=== PATIENT | male | born 1935 | race Caucasian/White ===

== ENCOUNTER 2017-02-08 06:56 | Emergency (ER) | payer MEDICARE ==
[2017-02-08 07:23] LABS: BASOPHILS 0.4 % (0-2); EOSINOPHILS 2.5 % (0-7); HEMATOCRIT 49.3 % (42.0-54.0); HEMOGLOBIN 16.8 g/dL (13.5-17.5); IMMATURE GRANULOCYTES 0.3 % (0-5); LYMPHOCYTES 24.3 % (15-50); MCH 27.8 pg (26.0-34.0); MCHC 34.1 g/dL (31.0-37.0); MCV 81.5 fL (80.0-100.0); MEAN PLATELET VOLUME 9.2 fL (7.4-10.4); MONOCYTES 10.1 % (2-11); NEUTROPHILS 62.4 % (40-80); PLATELET COUNT 191 10x3/uL (130-400); RBC 6.05 10x6/uL (4.20-6.10); RDW 12.6 % (11.5-14.5); WBC 7.6 10x3/uL (4.8-10.8)
[2017-02-08 07:42] LABS: ALBUMIN 3.4 g/dL (3.4-5.0); ALKALINE PHOSPHATASE 76 U/L (46-116); ALT (SGPT) 21 U/L (10-68); CALC OSMOLALITY 279 mosm/kg (275-300); CALCIUM 9.3 mg/dL (8.5-10.1); CARBON DIOXIDE 34.2 mmol/L (21.0-32.0); CHLORIDE - SERUM 100 mmol/L (98-107); CREATININE - SERUM 1.2 mg/dL (0.6-1.3); GLUCOSE 85 mg/dL (74-106); POTASSIUM - SERUM 3.1 mmol/L (3.5-5.1); PROTEIN - SERUM 7.4 g/dL (6.4-8.2); SODIUM 139 mmol/L (136-145); UREA NITROGEN 22 mg/dL (7-18); eGFR NON AFRICAN AMERICAN 62 mL/min (90-120)
[2017-02-08 07:46] LABS: CREATINE KINASE 56 UL (21-232)
[2017-02-08 07:49] LABS: TROPONIN-I < 0.017 ng/mL (0.000-0.060)
[2017-05-17] MEDS ORDERED: BAYER CHEWABLE81 MG PO (09:31)
[2017-05-21 09:46] VITALS: BMI 27.4
== END 2017-02-08 16:25 | disposition home or self-care (01) ==
LOC: D.ER 06:56
PROVIDERS: Emergency Medicine
DX: R42 Dizziness and giddiness (principal); I10 Essential (primary) hypertension

== ENCOUNTER 2017-02-13 06:33 | Outpatient (CLI) | payer MEDICARE ==
[2017-02-13 07:57] LABS: BASOPHILS 0.5 % (0-2); EOSINOPHILS 4.2 % (0-7); HEMATOCRIT 48.4 % (42.0-54.0); HEMOGLOBIN 16.2 g/dL (13.5-17.5); IMMATURE GRANULOCYTES 0.1 % (0-5); LYMPHOCYTES 22.1 % (15-50); MCH 27.6 pg (26.0-34.0); MCHC 33.5 g/dL (31.0-37.0); MCV 82.3 fL (80.0-100.0); MEAN PLATELET VOLUME 9.4 fL (7.4-10.4); MONOCYTES 8.5 % (2-11); NEUTROPHILS 64.6 % (40-80); PLATELET COUNT 203 10x3/uL (130-400); RBC 5.88 10x6/uL (4.20-6.10); RDW 12.7 % (11.5-14.5); WBC 7.7 10x3/uL (4.8-10.8)
[2017-02-13 08:19] LABS: APTT 35.4 SECONDS (22.8-39.4)
[2017-02-13 08:20] LABS: CALCIUM 9.6 mg/dL (8.5-10.1); CARBON DIOXIDE 31.4 mmol/L (21.0-32.0); CREATININE - SERUM 1.6 mg/dL (0.6-1.3); POTASSIUM - SERUM 3.4 mmol/L (3.5-5.1)
[2017-02-13] MEDS ORDERED: COZAAR100 MG PO (08:32)
[2017-02-13] MEDS ORDERED: KLOR-CON M2020 MEQ PO (08:32)
[2017-02-13] MEDS ORDERED: CHLORTHALIDONE50 MG PO (08:32)
[2017-02-13] MEDS ORDERED: PRILOSEC10 M1 PO (08:33)
[2017-02-13] MEDS ORDERED: PRAVACHOL80 MG PO (08:33)
[2017-02-13] MEDS ORDERED: ASPIRIN325 MG PO (08:41)
[2017-02-13 08:43] VITALS: BP 159/74; BMI 26.5
[2017-05-17] MEDS ORDERED: BAYER CHEWABLE81 MG PO (09:31)
== END 2017-02-13 09:00 | disposition home or self-care (01) ==
LOC: D.OPS 06:33 → D.RAD 09:00 → D.OPS 09:00
PROVIDERS: General Practice
DX: D15.0 Benign neoplasm of thymus (principal); Z01.810 Encounter for preprocedural cardiovascular examination; Z01.811 Encounter for preprocedural respiratory examination; Z01.812 Encounter for preprocedural laboratory examination; Z53.9 Procedure and treatment not carried out, unspecified reason

== ENCOUNTER 2017-02-18 09:51 | Outpatient (CLI) | payer MEDICARE ==
[~2017-02-18 09:51] MED LIST: ASPIRIN325 MG PO; CHLORTHALIDONE50 MG PO; COZAAR100 MG PO; KLOR-CON M2020 MEQ PO; PRAVACHOL80 MG PO; PRILOSEC10 M1 PO
[2017-02-18 11:38] LABS: BASOPHILS 0.4 % (0-2); EOSINOPHILS 2.7 % (0-7); HEMATOCRIT 48.6 % (42.0-54.0); HEMOGLOBIN 16.5 g/dL (13.5-17.5); IMMATURE GRANULOCYTES 0.4 % (0-5); LYMPHOCYTES 25.5 % (15-50); MCH 27.9 pg (26.0-34.0); MCV 82.1 fL (80.0-100.0); MEAN PLATELET VOLUME 8.9 fL (7.4-10.4); MONOCYTES 6.7 % (2-11); NEUTROPHILS 64.3 % (40-80); PLATELET COUNT 233 10x3/uL (130-400); RBC 5.92 10x6/uL (4.20-6.10); RDW 12.3 % (11.5-14.5); WBC 9.9 10x3/uL (4.8-10.8)
[2017-02-18 11:49] LABS: CALC OSMOLALITY 282 mosm/kg (275-300); CALCIUM 9.6 mg/dL (8.5-10.1); CARBON DIOXIDE 29.7 mmol/L (21.0-32.0); CHLORIDE - SERUM 100 mmol/L (98-107); GLUCOSE 90 mg/dL (74-106); POTASSIUM - SERUM 3.1 mmol/L (3.5-5.1); SODIUM 141 mmol/L (136-145); UREA NITROGEN 19 mg/dL (7-18); eGFR NON AFRICAN AMERICAN 76 mL/min (90-120)
[2017-02-18 11:50] VITALS: BP 187/81; BMI 26.5
[2017-02-18 11:53] LABS: APTT 38.1 SECONDS (22.8-39.4)
--- NOTE | 2017-02-18 14:54 | NUR ---
1425- PT BACK TO ROOM WITH HOB ELEVATED. PT TO BE ON BEDREST FOR THE NEXT 4 HOURS PER REPORT. REGULAR FOOD TRAY OFFERED. VSS. WILL MONITOR. 1455- PT CONTINUES TO SIT UP IN BED WITH HOB ELEVATED. FOOD TOLERATED. VSS. SEE VS SHEET. DRESSING C/D/I.
--- NOTE | 2017-02-18 16:08 | NUR ---
1530- PT RESTING COMFORTABLY. VSS. DRESSING REMAINS C/D/I. 1600- CHEST XRAY COMPLETED. CONTINUE WITH BEDREST. VSS.
--- NOTE | 2017-02-18 16:20 | NUR ---
REPORT GIVEN TO SALLY RICHTER RN. PT CONTINUES TO SIT UP IN BED WITH HOB ELEVATED. VSS. DRESSING REMAINS C/D/I.
--- NOTE | 2017-02-18 17:03 | NUR ---
PT RESTING EASILY. DRESSING TO CHEST REMAINS C/D/I. WATER REQUESTED AND PROVIDED.
--- NOTE | 2017-02-18 17:58 | NUR ---
IV D/C'D CATH INTACT FROM R A/C.
--- NOTE | 2017-02-18 18:09 | NUR ---
D/C INSTRUCTIONS EXPLAINED TO PT. VOICED UNDERSTANDING. COPIES OF ALL GIVEN TO PT.
--- NOTE | 2017-02-18 18:17 | NUR ---
D/C'D HOME VIA W/C TO PRIVATE CAR.
[2017-05-17] MEDS ORDERED: BAYER CHEWABLE81 MG PO (09:31)
== END 2017-02-18 18:20 | disposition home or self-care (01) ==
LOC: D.RAD 09:51 → D.SDCHOLD 11:33 → D.RAD 13:00
PROVIDERS: Radiology Diagnostic Radiology
DX: D15.0 Benign neoplasm of thymus (principal); R42 Dizziness and giddiness; E78.5 Hyperlipidemia, unspecified; Z01.812 Encounter for preprocedural laboratory examination

== ENCOUNTER 2017-03-09 03:37 | Emergency (ER) | payer MEDICARE ==
[2017-05-17] MEDS ORDERED: BAYER CHEWABLE81 MG PO (09:31)
== END 2017-03-09 07:26 | disposition home or self-care (01) ==
LOC: D.ER 03:37
DX: S43.402A Unspecified sprain of left shoulder joint, initial encounter (principal); W01.0XXA Fall on same level from slipping, tripping and stumbling without subsequent striking against object, initial encounter; Y93.89 Activity, other specified; Y92.029 Unspecified place in mobile home as the place of occurrence of the external cause; I10 Essential (primary) hypertension

== ENCOUNTER → 2017-03-22 13:01 | Outpatient (CLI) | payer MEDICARE ==
[~2017-03-22 13:01] MED LIST changes: +BAYER CHEWABLE81 MG PO; +HYDROCODONE-APA1 TAB PO; +PLAVIX75 MG PO
== END | disposition home or self-care (01) ==
LOC: D.US 13:01 → D.RT 14:45
DX: I65.23 Occlusion and stenosis of bilateral carotid arteries (principal); R91.8 Other nonspecific abnormal finding of lung field

== ENCOUNTER → 2017-04-02 10:27 | Outpatient (CLI) | payer MEDICARE | END | disposition home or self-care (01) | LOC: D.CT 10:27 | DX: I65.23 Occlusion and stenosis of bilateral carotid arteries (principal) ==

== ENCOUNTER 2017-04-09 06:38 | Inpatient (IN) | payer MEDICARE ==
[2017-04-09] VITALS (11 sets, daily range): BP systolic 94–192; BP diastolic 45–93; Ht 182.9 cm; Wt 93.2 kg
[~2017-04-09] VITALS: Ht 182.9 cm; Wt 93.2 kg
[~2017-04-09 06:38] MED LIST changes: -BAYER CHEWABLE81 MG PO; -HYDROCODONE-APA1 TAB PO; -PLAVIX75 MG PO
[2017-04-09] MEDS ORDERED: PLAVIX75 MG PO (08:20)
[2017-04-09 08:24] LABS: HEMOGLOBIN 16.4 g/dL (13.5-17.5); MCH 28.2 pg (26.0-34.0); MCHC 34.9 g/dL (31.0-37.0); MCV 80.9 fL (80.0-100.0); MEAN PLATELET VOLUME 9.1 fL (7.4-10.4); RBC 5.81 10x6/uL (4.20-6.10); RDW 12.8 % (11.5-14.5); WBC 7.8 10x3/uL (4.8-10.8)
[2017-04-09 08:40] LABS: APTT 34.4 SECONDS (22.8-39.4); INR 1.04 (0.85-1.17); PROTIME 13.2 SECONDS (11.6-15.0)
[2017-04-09 08:57] LABS: ALBUMIN 3.9 g/dL (3.4-5.0); ALKALINE PHOSPHATASE 79 U/L (46-116); ALT (SGPT) 32 U/L (10-68); CALC OSMOLALITY 277 mosm/kg (275-300); CALCIUM 9.9 mg/dL (8.5-10.1); CARBON DIOXIDE 31.9 mmol/L (21.0-32.0); CHLORIDE - SERUM 98 mmol/L (98-107); CREATININE - SERUM 0.9 mg/dL (0.6-1.3); GLUCOSE 102 mg/dL (74-106); PROTEIN - SERUM 7.8 g/dL (6.4-8.2); SODIUM 138 mmol/L (136-145); UREA NITROGEN 17 mg/dL (7-18); eGFR NON AFRICAN AMERICAN 86 mL/min (90-120)
[2017-04-09 09:08] LABS: APPEARANCE CLEAR (CLEAR); BACTERIA FEW /hpf (NONE SEEN); BILIRUBIN NEGATIVE (NEGATIVE); COLOR YELLOW (YELLOW); EPITHELIAL CELLS OCC /hpf (0-5); GLUCOSE NEGATIVE (NEGATIVE); KETONE NEGATIVE (NEGATIVE); NITRITE NEGATIVE (NEGATIVE); PROTEIN NEGATIVE (NEGATIVE); RED CELLS - URINE 0-5 /hpf (0-5); UROBILINOGEN NORMAL (NORMAL); WHITE CELLS - URINE RARE /hpf (0-5)
--- NOTE | 2017-04-09 15:00 | NUR ---
RECIEVED PT TO CVICU BED 05. SLEEPY DOES FOLLOWS COMMANDS. ON 7 CC OF NITRO BUT WEANED OFF. BP 110/50. PLASMALYTE AT 30CC/HR ZINACEF AT 11.4. NO CO AT TIME.
--- NOTE | 2017-04-09 16:00 | NUR ---
FAMILY AT THE BEDSIDE. NO CO AT TIME.
--- NOTE | 2017-04-09 18:30 | NUR ---
DR KING CALLED OK TO GIVE COZAAR 100MG NOW. AND GIVEN.
--- NOTE | 2017-04-09 19:20 | NUR ---
REPORT REC'D AND CARE ASSUMED, REC'D PT SITTING UP IN BED, AWAKE, ALERT, ORIENTED X 3, O2 @ 4LITERS VIA NC, RIGHT RADIAL SREE WITH FLEXION BOARD IN USE, LEFT NECK DRSG CDI, MINIMAL EDEMA, ICE PACK TO SITE, LEFT UPPER CHEST JACKLYN DRAIN COMPRESSED WITH SANGUINOUS DRAINAGE PRESENT, PT MAEE, TONGUE MIDLINE AND SMILE SYMMETRICAL, RIGHT IJ DL WITH PLASMALYTE @ 30CC/HR AND ZINACEF @ 11.4CC/HR, CRITICORE ORTEGA PREVIOUSLY REMOVED, URINAL PROVIDED FOR PT BUT PT HAS NOT HAD TO VOID OF YET, TEDS/SCDS, PPP, PT DENIES NEEDS, SR UP X 2, CALL LIGHT IN REACH, BED IN LOW POSITION.
--- NOTE | 2017-04-09 20:15 | NUR ---
FAMILY AT BS AND UPDATE PROVIDED, LIST OF TV CHANNELS PROVIDED ON REQUEST.
--- NOTE | 2017-04-09 21:00 | NUR ---
PT WANTING TO GO TO SLEEP, DENTURES REMOVED CLEANED FOR PT AND PLACED IN DENTURE CUP TO SOAK, PLACED ON BEDSIDE TABLE, PT ATE 1/2 OF SANDWICH, DENIES NAUSEA OR OTHER NEEDS
--- NOTE | 2017-04-09 22:00 | NUR ---
PT EXPRESSES CONCERN ABOUT "NOT GOING TO THE BATHROOM YET", ASKED PT IF HE FELT THE URGE TO VOID, STATES " NO I DON'T FEEL LIKE I HAVE TO GO", URINAL IN REACH.
[2017-04-10] VITALS (32 sets, daily range): BP systolic 91–135; BP diastolic 36–71
--- NOTE | 2017-04-10 | NUR ---
PT REPOSITIONED UP IN BED, NEURO CHECKS REMAIN UNCHANGED, PT SAT UP IN BED WITH URINAL FAUCET TURNED PER REQUEST.
--- NOTE | 2017-04-10 00:30 | NUR ---
PT VOIDED A FEW BLOOD TINGED DROPS OF URINE, STATES "IT PLATA WHEN I TRY TO VOID", PT DENIES BLADDER DISCOMFORT, REQUESTING ICE WATER, ICE WATER PROVIDED, PT STATES " I WILL TRY AGAIN LATER", VSS.
--- NOTE | 2017-04-10 02:00 | NUR ---
ROUTINE MEDS GIVEN, PT REPOSITIONED UP IN BED FOR COMFORT, BP DROPS INTO THE 80'S AT TIMES WHEN SLEEPING, PT DENIES PAIN OR OTHER NEEDS, VSS.
--- NOTE | 2017-04-10 02:51 | NUR ---
PT AWAKE REQUESTING SOMETHING FOR NECK PAIN, ULTRAM GIVEN, PT SITTING UP IN BED, STATES " I FEEL THE URGE TO GO" PT ABLE TO VOID 25CC BLOOD TINGED URINE, WILL MONITOR FOR CHANGES.
--- NOTE | 2017-04-10 03:30 | NUR ---
REASSESSMENT COMPLETED WITH NO CHANGE FROM PREVIOUS ASSESSMENT
--- NOTE | 2017-04-10 04:30 | NUR ---
PT ASKING ABOUT BREAKFAST, INFORMED PT THE TRAYS ARRIVED AT 0730, SNACK PROVIDED AT THIS TIME.
--- NOTE | 2017-04-10 05:45 | NUR ---
Andres DANIEL AT BS, LEFT UPPER CHEST JACKLYN DRAIN DC'D, PRESSURE HELD, 2X2'S AND TEGADERM APPLIED, PT TOLERATED WELL, REPOSITIONED IN BED FOR COMFORT.
--- NOTE | 2017-04-10 06:30 | NUR ---
PT VOIDED 50CC CONCENTRATED URINE, HAND HELPER/DRIVER PROVIDED ON REQUEST.
--- NOTE | 2017-04-10 10:50 | NUR ---
* Is the patient Alert and Oriented? Yes 0 * How many steps to enter\exit or inside your home? 0 0 * PCP Dr. Sanders 0 * Pharmacy [facility] 0 * Preadmission Environment Home with Family 0 * ADLs Independent 0 * List name and contact numbers for known caregivers / representatives who currently or will assist patient after discharge: Spouse - Alethea [phone] 0 * Additional services required to return to the preadmission environment? No 0 * Can the patient safely return to the preadmission environment? Yes 0 * Has this patient been hospitalized within the prior 30 days at any hospital? No 0 Patient Name: BRENDAN FORD Admission Status: Elective Accout number: [id number] Admission Date: 04-09-2017 : 1935 Admission Diagnosis: Attending: MARCY KING Current LOS: 1 Anticipated DC Date: 04-11-2017 Planned Disposition: Home Primary Insurance: [employer] MEDICARE ADV Discharge Planning Comments: CM met with patient to assess dc plans/needs. Patient states he lives at home with his , Alethea. He reports he is fully independent with all ADL's & IADL's. He has not had home health services in the past or required any DME. At dc, he will return home with his . No needs identified or verbalized at this time. CM will follow & assist as needed. Materials Coordinator: Cara Feliciano
--- NOTE | 2017-04-10 12:00 | NUR ---
PT DENIES PAIN, UP IN CHAIR ABLE TO REPOSITION SELF, WILL CONTINUE TO MONITOR
--- NOTE | 2017-04-10 13:00 | NUR ---
PT WALKED 250FT WITH PT, VSS, DENIES PAIN, FAMILY AT BEDSIDE FOR VISITATION, WILL CONTINUE TO MONITOR
--- NOTE | 2017-04-10 14:00 | NUR ---
PT DENIES PAIN, UP IN CHAIR, VSS
--- NOTE | 2017-04-10 15:00 | NUR ---
VSS, DENIES ALL NEEDS, CALL LIGHT WITHIN REACH
--- NOTE | 2017-04-10 17:00 | NUR ---
PT UP IN CHAIR, DENIES PAIN AND ALL NEEDS, CVL DRESSING CHANGED, DRESSING TO L NECK PEELING OFF, REAPPLIED A NEW DRESSING, WILL CONTINUE TO MONITOR
--- NOTE | 2017-04-10 19:33 | NUR ---
PT AOX4, VSS. UP IN CHAIR, NO S/S OF DISTRESS, RESPIRATIONS UNLABORED. LT NECK WITH DRSG CDI, NO SWELLING OR OOZING PRESENT. EQUAL STRENGTH AND PRODUCER ASSISTANT. URINAL WITHIN PT REACH. FRESH WATER TO BEDSIDE. REPOSITIONS SELF INDEPENDENTLY. DENIES FURTHER NEEDS AT THIS TIME. CPOC.
--- NOTE | 2017-04-10 20:30 | NUR ---
FAMILY AT BEDSIDE, ALL QUESTIONS ANSWERED AT THIS TIME. DENIES NEEDS.
--- NOTE | 2017-04-10 23:30 | NUR ---
REASSESSMENT COMPLETE, NO CHANGES FROM PREVIOUS ASSESSMENT NOTED. PT RESTING QUIETLY WITH NO C/O AT THIS TIME. VSS. CPOC.
[2017-04-11] VITALS (8 sets, daily range): BP systolic 111–126; BP diastolic 51–63
--- NOTE | 2017-04-11 01:30 | NUR ---
PT SLEEPING QUIETLY WITH NO S/S OF DISTRESS AT THIS TIME. VSS. CALL LIGHT WITHIN PT REACH, ROOM VISIBLE FROM NURSES STATION. CPOC.
--- NOTE | 2017-04-11 03:43 | NUR ---
PT TO BATHROOM WITH MINIMAL ASSISTANCE, DENIES DIZZINESS. VSS, NO S/S OF DISTRESS. DENIES PAIN AT THIS TIME. LT NECK WITH NO SWELLING OR OOZING PRESENT.
--- NOTE | 2017-04-11 07:15 | NUR ---
PT ALERT AND OREINTED, ASSISTED TO CHAIR, VSS, DENIES PAIN, DRESSING TO L NECK CEA CDI, R SUBCLAVIAN CVL DRESSING CDI, SALINE LOCKED, ABLE TO VOICE ALL NEEDS, CALL LIGHT WITHIN REACH
--- NOTE | 2017-04-11 08:43 | NUR ---
CVL REMOVED, PRESSURE DRESSING APPLIED, DENIES ALL PAIN
--- NOTE | 2017-04-14 13:23 | OP ---
PATIENT NAME: BRENDAN FORD MEDICAL RECORD: [id number] :36 [facility] ADMISSION DATE:04/09/17 SURGEON: SENG KING MD DATE OF OPERATION: 04/09/2017 SURGEON: Seng King MD ANESTHESIA: General endotracheal. ANESTHESIOLOGIST: Chuck Diaz MD OPERATION PERFORMED: Left carotid endarterectomy with patch angioplasty. PREOPERATIVE DIAGNOSIS: Severe left internal carotid artery stenosis. POSTOPERATIVE DIAGNOSIS: Critical left internal carotid artery stenosis with an area of stenosis greater than 90%. INDICATION FOR OPERATION: Severe left internal carotid artery stenosis. FINDINGS OF THE OPERATION: Severe left internal carotid artery stenosis. The area of stenosis is greater than 90%. The bulb was almost totally occluded with blood having to enter the orifice of the external carotid artery to be able to traverse into the internal carotid artery. There were no EEG changes with clamping or unclamping of the carotid artery. ESTIMATED BLOOD LOSS: Less than 100 cc. DESCRIPTION OF PROCEDURE: After informed consent, adequate preoperative medication evaluation, the patient was brought to the operating room, placed on table in supine position. After induction of general endotracheal anesthesia and application of appropriate monitoring devices, the left neck was prepped and draped in a sterile field, utilizing Betadine scrub, alcohol, and Betadine solution. A Betadine-impregnated drape was also used. An oblique incision was made in the skin crease. Dissection carried down the fascia. Hemostasis maintained with electrocautery. Facial vein was identified and divided. Utilizing sharp dissection, the common carotid, internal and external carotid arteries were dissected free from surrounding structures, protecting the neurological structures. The patient was given a calculated dose of heparin, after 3 minutes, clamps were applied. After 2 minutes, no EEG changes. The arteriotomy was made and extended with Mac scissors. The bulb was almost totally occluded requiring a distal incision and bringing the 2 incisions together with a 15 blade. The artery then underwent endarterectomy sharply. Artery underwent extensive debridement and irrigation. Utilizing a CorMatrix vascular patch utilizing a running 7-0 Prolene suture, the arteriotomy was closed with patch angioplasty technique. All maneuvers to remove trapped air were performed. The clamps were removed sequentially. There were no EEG changes. The patient was given a calculated dose of protamine to reverse the heparin. Hemostasis was achieved, a #7 [place] drain was left in the depth of wound, and brought through the base of the neck, neck was again irrigated. Instrument count and sponge count were correct times 2. Neck was closed in layers utilizing 3-0 Vicryl on the platysma, 5-0 subcuticular Monocryl on the skin. Sterile dressings were applied. The patient tolerated the procedure well and was transferred to cardiovascular ICU in satisfactory condition. OPERATIVE REPORT [id number] BRENDAN FORD TRANSINT:[id number] Voice Confirmation ID: [id number] DOCUMENT ID: [id number] SENG KING MD at 1323 CC: [id number] DICTATION DATE: 04/09/17 1453 FAN BLADE TRUER: 04/09/17 1540 DIS IN 04/11/17 [facility] [address] [place] [address]
--- NOTE | 2017-04-14 13:23 | HP ---
PATIENT: BRENDAN FORD MEDICAL RECORD: [id number] ACCOUNT: [id number] LOCATION:[facility] : 36 ADMISSION DATE: 04/09/17 HISTORY AND PHYSICAL EXAMINATION NameBRENDAN FORD (81yo, M) ID# [id number]. Date/Time04/04/2017 09:69VQBHC40/23/1937Service Dept.NPP_[facility] ClinicProviderEDTHAIS KING MDInsuranceMed Primary: [employer] (MEDICARE REPLACEMENT/ADVANTAGE - HMO) Insurance # : [id number] Policy/Group # : [id number] Employer Name : RETIRED Prescription: CMX - Member is eligible. Chief Complaint Carotid stenosis Followup: Thymoma CTA carotids clinical f/u Patient's Care Team Primary Care Provider: ARIAN KRISHNA: [address] [facility], [place] [address], , Referring Provider: MAGDALENA HENRIQUEZ MD: [address] [facility] [place] [address], , Vitals BP:152/82 sitting R arm 04/04/2017 09:29 amBP Cuff Size:adult 04/04/2017 09:29 amHR:76,reg 04/04/2017 09:29 amHt:5 ft 11 in 04/04/2017 09:26 amWt:195 lbs 04/04/2017 09:29 amNotes:here for ttest results 04/04/2017 09:30 amBMI:27.2 04/04/2017 09:29 amAllergies Reviewed Allergies NKDAMedications Reviewed Medications aspirin 325 mg tablet Take 1 tablet(s) every day by oral route.03/01/17 enteredKathy Wilsonchlorthalidone 50 mg tablet Take 1 tablet(s) every day by oral route.03/29/17 filledCaremarkcyclobenzaprine 10 mg tablet TK ONE T PO TID PRF MUSCULAR PAIN OR PZFBID77/18/17 filledsurescriptslosartan 100 mg tablet Take 1 tablet(s) every day by oral route for 30 days.03/29/17 filledCaremarkomeprazole 10 mg capsule,delayed release Take 1 capsule(s) every day by oral route.03/01/17 [facility] Wilsonpotassium chloride ER 20 mEq tablet,extended release Take 1 tablet(s) every day by oral route.03/01/17 [facility] Wilsonpravastatin 80 mg dedvqw82/24/17 filledCaremark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 Family History Discussed Family History Father- Cerebrovascular accidentUnspecified Relation- Malignant neoplastic diseaseSocial History Discussed Social History Cardiology Family history of heart disease?: N HISTORY AND PHYSICAL [id number] BRENDAN FORD Smoking Status: Former smoker (Notes: quit x 30 yrs) High Cholesterol: Y High blood pressure: Y Exercise level: None Overweight: Y Obese: N Diabetes: N Alcohol intake: Occasional Occupation: retired Surgical History Reviewed Surgical History Past Medical History Discussed Past Medical History Carotid Stenosis: Y - bruit appreciated by PCP per h and p Dizzy Spells: Y Hyperlipidemia: Y Hypertension: Y Documents for Discussion N/A Screening None recorded. HPI Cerebral Vascular Disease Reported by patient. Associated Symptoms: no headache; no nausea; no vomiting; no tinnitus; no difficulty speaking; no lethargy; no fever; no chills; no palpitations; no syncope; no loss of consciousness severe left internal carotid artery stenosis Thymoma ROS Patient reports no fever, no night sweats, no significant weight gain, no significant weight loss, and no exercise intolerance. He reports no dry eyes, no irritation, and no vision change. He reports no difficulty hearing and no ear pain. He reports no frequent nosebleeds and no nose/sinus problems. He reports no sore throat, no bleeding gums, no snoring, no dry mouth, no mouth ulcers, no oral abnormalities, and no teeth p r oblems. He reports no jugular vein distension and no swollen glands. He reports no chest pain, no arm pain on exertion, no shortness of breath when walking, no shortness of breath when lying down, no palpitations, and no known heart murmur. He reports no c ough, no wheezing, no shortness of breath, and no coughing up blood. He reports no abdominal pain, no vomiting, normal appetite, no diarrhea, not vomiting blood, no nausea, and no constipation. He reports no incontinence, no difficulty urinating, no hemat u bk, and no increased frequency. He reports no muscle aches, no muscle weakness, no arthralgias/joint pain, no back pain, and no swelling in the extremities. He reports no abnormal mole, no jaundice, and no rashes. He reports no loss of consciousness, no w eakness, no numbness, no seizures, no dizziness, and no headaches. He reports no depression, no sleep disturbances, feeling safe in relationship, and no alcohol abuse. He reports no fatigue. He reports no swollen glands and no bruising. He reports no runn y nose, no sinus pressure, no itching, no hives, and no frequent sneezing. ROS as noted in the HPI Physical Exam Patient is an 81-year-old male. Constitutional: General Appearance well nourished and developed and HISTORY AND PHYSICAL [id number] BRENDAN FORD R healthy-appearing. Level of Distress NAD. Ambulation ambulating normally. Cardiovascular: Apical Impulse not displaced or no thrill. Heart Auscultation normal s1 and s2; no murmurs, rubs, or gallops; and RRR. Arterial Pulses no abdominal aorta bruits, femoral bruits, or popliteal bruits and 2+ bi lateral, carotid 2+ bilateral, femoral 2+ bilateral, popliteal 2+ bilateral, and dorsalis pedis 2+ bilateral. Edema no edema or varicosities. Lungs: Repiratory Effort no dyspnea. Percussion no hyperresonance or dullness or flatness. Auscultation no wheezi ng, rhonchi, or rales / crackles and breathing sounds normal, good air movement, and CTA except as noted. Abdomen: Bowl Sounds normal. Inspection and Palpation no tenderness, guarding, masses, or rebound tenderness and soft and non-distended. Liver non-te nder and no hepatomegaly. Spleen non-tender and no splenomegaly. Hernia none palpable. Musculoskeletal System: Gait And Stance normal gait and stance. Digits and Nails normal nails and no cyanosis. Neurologic: Cranial Nerves grossly intact. Reflexes DTRs 2+ bilaterally throughout. Sensation grossly intact. Lymph Nodes: Lymph Nodes no cervical LAD, supraclavicular LAD, axillary LAD, or inguinal LAD. Eyes: Lids and Conjunctivae no discharge or pallor and non-injected. Pupils PERRLA. Cornea grossly intact. EOM EOMI. Lens clear. Sclerae non-icteric. Neck: Neck no masses or enlarged lymph nodes and supple, trachea midline, and carotid bruits (bilateral). Thyroid no enlargement or nodules and non-tender. Skin: Inspection and Palpation no rash, lesions, ulcers, jaundice, or abnormal nevi. 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 Carotid artery stenosis - Left I65.29: Occlusion and stenosis of unspecified carotid artery CAROTID STENOSIS: CARE INSTRUCTIONS Discussion Notes I have reviewed the patient's CT angiogram with him in person as well as the actual study. I have discussed his disease process with him and his in detail as well as the alternative methods of treatment were discussed left carotid endarterectomy including the expected benefits and risks which include bleeding, infection, stroke, and the impondera bles. He understands all of the above and wished to proceed with left carotid endarterectomy prior to thymectomy. HISTORY AND PHYSICAL [id number] BRENDAN FORD EDWARD MD at 1323 CC: [id number] DICTATION DATE: 04/04/17914 GEOSPATIAL IMAGE ANALYST: ANUSHA 04/08/17 1010 DIS IN 04/11/17 [facility] [address] [place] [address]
[2017-05-17] MEDS ORDERED: BAYER CHEWABLE81 MG PO (09:31)
== END 2017-04-11 09:36 | disposition home or self-care (01) | DRG 39 ==
LOC: D.CVICU 06:38 → D.SDCHOLD 06:38 → D.CVICU 11:01 → D.SDCHOLD 12:45 → D.CVICU 04-11 09:36
PROVIDERS: ADMIT Internal Medicine Cardiovascular Disease
PROC: 03UL0JZ Supplement Left Internal Carotid Artery with Synthetic Substitute, Open Approach (ICD-10-PCS; 2017-04-09)
PROC: 03CL0ZZ Extirpation of Matter from Left Internal Carotid Artery, Open Approach (ICD-10-PCS; principal; 2017-04-09 12:45)
DX: I65.22 Occlusion and stenosis of left carotid artery (principal); E78.00 Pure hypercholesterolemia, unspecified; I10 Essential (primary) hypertension; D15.0 Benign neoplasm of thymus

== ENCOUNTER 2017-05-20 05:04 | Inpatient (IN) | payer MEDICARE ==
[2017-05-17 09:16] LABS: HEMATOCRIT 45.7 % (42.0-54.0); HEMOGLOBIN 15.5 g/dL (13.5-17.5); MCHC 33.9 g/dL (31.0-37.0); MCV 82.5 fL (80.0-100.0); MEAN PLATELET VOLUME 9.2 fL (7.4-10.4); RBC 5.54 10x6/uL (4.20-6.10); RDW 12.3 % (11.5-14.5)
[2017-05-17 09:28] LABS: PROTIME 12.8 SECONDS (11.6-15.0)
[2017-05-17 09:29] LABS: APTT 36.4 SECONDS (22.8-39.4)
[2017-05-17 09:32] LABS: CALC OSMOLALITY 282 mosm/kg (275-300); CALCIUM 9.9 mg/dL (8.5-10.1); CARBON DIOXIDE 32.3 mmol/L (21.0-32.0); CHLORIDE - SERUM 101 mmol/L (98-107); GLUCOSE 80 mg/dL (74-106); POTASSIUM - SERUM 3.3 mmol/L (3.5-5.1); SODIUM 141 mmol/L (136-145); UREA NITROGEN 21 mg/dL (7-18); eGFR NON AFRICAN AMERICAN 76 mL/min (90-120)
[2017-05-17 09:42] LABS: APPEARANCE CLEAR (CLEAR); BILIRUBIN NEGATIVE (NEGATIVE); COLOR STRAW (YELLOW); GLUCOSE NEGATIVE (NEGATIVE); KETONE NEGATIVE (NEGATIVE); NITRITE NEGATIVE (NEGATIVE); PROTEIN NEGATIVE (NEGATIVE); UROBILINOGEN NORMAL (NORMAL)
[2017-05-17 09:44] LABS: BACTERIA FEW /hpf (NONE SEEN); EPITHELIAL CELLS RARE /hpf (0-5); MUCUS <1+ /lpf (NONE SEEN); RED CELLS - URINE 0-5 /hpf (0-5); SPERMATOZOA RARE /hpf (NONE SEEN); WHITE CELLS - URINE OCC /hpf (0-5)
[~2017-05-20] VITALS: Ht 180.3 cm; Wt 90.5 kg
[2017-05-20] VITALS (37 sets, daily range): BP systolic 95–179; BP diastolic 48–74; BMI 27.2; BMI 23.0
--- NOTE | ~2017-05-20 | OP ---
PATIENT NAME: BRENDAN FORD MEDICAL RECORD: [id number] :37 LOCATION:[facility] ADMISSION DATE:05/20/17 SURGEON: MARCY KING MD DATE OF OPERATION: 05/20/2017 SURGEON: Marcy King MD ANESTHESIA: General endotracheal, Dr. Diaz. OPERATION PERFORMED: Thymectomy. PREOPERATIVE DIAGNOSIS: Thymic tumor. POSTOPERATIVE DIAGNOSIS: Thymic tumor. INDICATION FOR OPERATION: Thymic tumor. FINDINGS AT OPERATION: Benign appearing thymic tumor, lymphadenectomy was performed with 2 enlarged lymph nodes. ESTIMATED BLOOD LOSS: Less than 100 mL. DESCRIPTION OF PROCEDURE: After informed consent, adequate preoperative medication evaluation, the patient was brought to the operating room, placed on the table in the supine position. After induction of general endotracheal anesthesia and application of appropriate monitoring devices, the chest, neck, abdomen were prepped and draped in a sterile field, utilizing Betadine scrub, alcohol, and Betadine solution. A Betadine-impregnated drape was also used. A small median sternotomy incision was used and dissection carried down to the fascia. Hemostasis maintained with electrocautery. The sternum was divided. Hemostasis was achieved. A retractor was placed in the wound and the dissection started at the neck. Utilizing a [place] retractor around the strap muscles, the 2 cephalad horns of the thymus were dissected free and the vessels ligated with a small Ligaclip. The thymus was dissected down onto the brachiocephalic vein, which was protected. The vessels from the brachiocephalic vein were divided utilizing Ligaclips. The fat along the aorta and pericardium was dissected bilaterally and rotating the thymus medially. The dissection was carried down to the diaphragm bilaterally. The tumor was retracted medially and the phrenic nerve identified. The tumor was close to the phrenic; however, it had a benign appearance. The thymus was then rotated medially by opening the pleura and incising the pleura anterior to the phrenic. This made dissection of the remainder of the thymus incising the AP window easily manipulated medially. The thymus was then removed and sent to pathology. Attention was then turned toward the left chest in the level 5 and 6 area. There were no nodes in that area. There were 2 nodes at level L3 that were sent to pathology as a separate specimen. Hemostasis was assured. The wound was irrigated. The instrument counts and sponge counts were correct times 2. A #32 chest tube was brought in through the epigastric area and placed in mediastinum. Instrument count and sponge count again correct. Chest was closed in layers utilizing #7 wire on the sternum, #2 Vicryl on the linea alba and pectoralis fascia. Subcutaneous tissue was approximated with 3-0 Vicryl and skin approximated with 3-0 subcuticular Vicryl. Sterile dressings were applied. The patient tolerated the procedure well and was transferred to the CV ICU in satisfactory condition. TRANSINT:[id number] Voice Confirmation ID: [id number] DOCUMENT ID: [id number] OPERATIVE REPORT [id number] BRENDAN FORD EDWARD MD at 1401 CC: [id number] DICTATION DATE: 05/20/17 1005 DIRECTOR OF CASINO MARKETING: 05/20/17 1326 DIS IN 05/23/17 [facility] [address] [place] [address]
--- NOTE | ~2017-05-20 | HP ---
PATIENT: BRENDAN FORD MEDICAL RECORD: [id number] ACCOUNT: [id number] LOCATION:[facility] : 36 ADMISSION DATE: 05/20/17 HISTORY AND PHYSICAL EXAMINATION NameBRENDAN FORD (81yo, M) ID# [id number]. Date/Time05/09/2017 10:39LAMXE33/23/1937[facility] Dept.NPP[facility] ClinicProviderEDTHAIS KING MDInsuranceMed Primary: [employer] (MEDICARE REPLACEMENT/ADVANTAGE - HMO) Insurance # : [id number] Policy/Group # : [id number] Employer Name : RETIRED Prescription: CMX - Member is eligible. Chief Complaint Followup: Carotid artery stenosis s/p LCEA 04/09/17 preop visit for thymectomy Patient's Care Team Primary Care Provider: ARIAN KRISHNA: [address] [facility], [place] [address], , Referring Provider: MAGDALENA HENRIQUEZ MD: [address] [place] [address], , Patient's Pharmacies [facility] ([facility] ): [address] [address], [facility] [place] [address], , Vitals BP:168/90 sitting L arm 05/09/2017 10:02 amBP Cuff Size:adult 05/09/2017 10:02 amHR:76,reg 05/09/2017 10:02 amHt:5 ft 11 in 05/09/2017 09:54 amWt:195 lbs 05/09/2017 10:02 amNotes:off plavix, taking aspirin 81mg. no pzufptb0705/09/2017 10:03 amBMI:27.2 05/09/2017 10:02 amAllergies Reviewed Allergies NKDAMedications Reviewed Medications aspirin 325 mg tablet Take 1 tablet(s) every day by oral route.03/01/17 enteredKathy Wilsonchlorhexidine gluconate 0.12 % mmohuuwrs75/28/17 filledCaremarkchlorthalidone 50 mg tablet Take 1 tablet(s) every day by oral route.05/07/17 filledCaremarkclopidogrel 75 mg tablet Take 1 tablet(s) every day by oral route.04/04/17 filledCaremarkcyclobenzaprine 10 mg tablet TK ONE T PO TID PRF MUSCULAR PAIN OR FVUACC23/18/17 filledsurescriptsKlor-Con M20 mEq tablet,extended mfndzyf88/12/18 filledCaremarklosartan 100 mg tablet Take 1 tablet(s) every day by oral route for 30 days.04/28/17 filledCaremarkomeprazole 10 mg capsule,delayed release Take 1 capsule(s) every day by oral route.03/01/17 enteredKathy Wilsonpotassium chloride ER 20 mEq tablet,extended release Take 1 tablet(s) every day by oral route.03/01/17 enteredKathy Wilsonpravastatin 80 mg ohtczt42/24/17 filledCaremark Some medications listed in Document: #[id number] could not be added to this patient's chart. Please review this document and add these medications to the patient's chart manually as needed. Vaccines Reviewed Vaccines Some vaccines listed in Document: #[id number] could not be added to this patient's HISTORY AND PHYSICAL [id number] BRENDAN FORD chart. Please review this document and add these vaccines to the patient's chart manually as needed. 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 Family History Reviewed Family History Father- Cerebrovascular accidentUnspecified Relation- Malignant neoplastic diseaseSocial History Reviewed Social History Cardiology Family history of heart disease?: N Smoking Status: Former smoker (Notes: quit x 30 yrs) High Cholesterol: Y High blood pressure: Y Exercise level: None Overweight: Y Obese: N Diabetes: N Alcohol intake: Occasional Occupation: retired Surgical History Reviewed Surgical History Carotid endarterectomy - 04/09/2017 Past Medical History Reviewed Past Medical History Carotid Stenosis: Y - bruit appreciated by PCP per h and p Dizzy Spells: Y Hyperlipidemia: Y Hypertension: Y Documents for Discussion N/A Screening None recorded. HPI Ribs/Chest/Sternum Reported by patient. Notes: thymoma, no symptoms post carotid endarterectomy ROS Patient reports no fever, no night sweats, no significant weight gain, no significant weight loss, and no exercise intolerance. He reports no dry eyes, no irritation, and no vision change. He reports no difficulty hearing and no ear pain. He reports no frequent nosebleeds and no nose/sinus problems. He reports no sore throat, no bleeding gums, no snoring, no dry mouth , no mouth ulcers, no oral abnormalities, and no teeth problems. He reports no jugular vein distension and no swollen glands. He reports no chest pain, no arm pain on exertion, no shortness of breath when walking, no shortness of breath when lying down, no palpitations, and no known heart murmur. He reports no cough, no wheezing, no shortness of breath, and no coughing up blood. He reports no abdominal pain, no vomiting, normal appetite, no diarrhea, not vomiting blood, no nausea, and no constipation. He re p orts no HISTORY AND PHYSICAL [id number] RADMANESH,MOHAMAD R incontinence, no difficulty urinating, no hematuria, and no increased frequency. He reports no muscle aches, no muscle weakness, no arthralgias/joint pain, no back pain, and no swelling in the extremities. He reports no abnormal mole, no jaundice, and no rashes. He reports no loss of consciousness, no weakness, no numbness, no seizures, no dizziness, and no headaches. He reports no depression, no sleep disturbances, feeling safe in relationship, and no alcohol abuse. He reports no fatigue. He repor ts no swollen glands and no bruising. He reports no runny nose, no sinus pressure, no itching, no hives, and no frequent sneezing. ROS as noted in the HPI Physical Exam Patient is an 81-year-old male. Constitutional: General Appearance well nourished and developed and healthy-appearing. Level of Distress NAD. Ambulation ambulating normally. Cardiovascular: Apical Impulse not displaced or no thrill. Heart Auscultation normal s1 and s2; no murmurs, rubs, or gallops; and RRR. Arterial Pulses no abdominal aor ta bruits, femoral bruits, or popliteal bruits and 2+ bilateral, carotid 2+ bilateral, femoral 2+ bilateral, popliteal 2+ bilateral, and dorsalis pedis 2+ bilateral. Edema no edema or varicosities. Lungs: Repiratory Effort no dyspnea. Percussion no hyperr esonance or dullness or flatness. Auscultation no wheezing, rhonchi, or rales / crackles and breathing sounds normal, good air movement, and CTA except as noted. Abdomen: Bowl Sounds normal. Inspection and Palpation no tenderness, guarding, masses, or [place] ound tenderness and soft and non-distended. Liver non-tender and no hepatomegaly. Spleen non-tender and no splenomegaly. Hernia none palpable. Musculoskeletal System: Gait And Stance normal gait and stance. Digits and Nails normal nails and no cyanosis. Neurologic: Cranial Nerves grossly intact. Reflexes DTRs 2+ bilaterally throughout. Sensation grossly intact. Lymph Nodes: Lymph Nodes no cervical LAD, supraclavicular LAD, axillary LAD, or inguinal LAD. Eyes: Lids and Conjunctivae no discharge or pallor and non-injected. Pupils PERRLA. Cornea grossly intact. EOM EOMI. Lens clear. Sclerae non-icteric. Neck: Neck no masses or enlarged lymph nodes and supple, trachea midline, and carotid bruits (bilateral). Thyroid no enlargement or nodules and non-tender. Skin: Inspection and Palpation no rash, lesions, ulcers, jaundice, or abnormal nevi. Assessment / Plan progressing well post left carotid endarterectomy The patient is ready for thymectomy 1. Carotid artery stenosis - Left I65.29: Occlusion and stenosis of unspecified carotid artery CAROTID STENOSIS: CARE INSTRUCTIONS 2. 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 He would like to proceed with surgery on MARCY KING MD at 1117 CC: [id number] DICTATION DATE: 05/09/17 1010 RED LEAD BURNER: ANUSHA 05/10/17 [id number] [place] [address]
[~2017-05-20 05:04] MED LIST changes: +BAYER CHEWABLE81 MG PO; +PLAVIX75 MG PO
[2017-05-21] VITALS (24 sets, daily range): BP systolic 94–149; BP diastolic 44–94; Ht 180.3 cm; Wt 90.5 kg
[2017-05-21 06:16] LABS: HEMATOCRIT 37.8 % (42.0-54.0); HEMOGLOBIN 12.5 g/dL (13.5-17.5); MCH 27.4 pg (26.0-34.0); MCHC 33.1 g/dL (31.0-37.0); MCV 82.9 fL (80.0-100.0); MEAN PLATELET VOLUME 8.9 fL (7.4-10.4); RBC 4.56 10x6/uL (4.20-6.10); RDW 12.6 % (11.5-14.5); WBC 10.7 10x3/uL (4.8-10.8)
[2017-05-21 06:35] LABS: ALBUMIN 3.1 g/dL (3.4-5.0); ANION GAP 10.5 mmol/L (8-16); BILIRUBIN - TOTAL 1.1 mg/dL (0.2-1.3); CALCIUM 7.7 mg/dL (8.5-10.1); CARBON DIOXIDE 31.4 mmol/L (21.0-32.0); CREATININE - SERUM 1.1 mg/dL (0.6-1.3); PROTEIN - SERUM 6.5 g/dL (6.4-8.2)
[2017-05-21 06:36] LABS: POTASSIUM - SERUM 2.9 mmol/L (3.5-5.1)
[2017-05-22] VITALS (23 sets, daily range): BP systolic 96–138; BP diastolic 43–63
[2017-05-22 06:31] LABS: HEMATOCRIT 37.2 % (42.0-54.0); HEMOGLOBIN 12.3 g/dL (13.5-17.5); MCH 27.3 pg (26.0-34.0); MCHC 33.1 g/dL (31.0-37.0); MCV 82.5 fL (80.0-100.0); RBC 4.51 10x6/uL (4.20-6.10); RDW 12.8 % (11.5-14.5)
[2017-05-22 06:44] LABS: ALBUMIN 2.9 g/dL (3.4-5.0); BILIRUBIN - TOTAL 0.75 mg/dL (0.2-1.3); CALCIUM 7.9 mg/dL (8.5-10.1); CARBON DIOXIDE 24.7 mmol/L (21.0-32.0); CREATININE - SERUM 1.1 mg/dL (0.6-1.3); PROTEIN - SERUM 6.8 g/dL (6.4-8.2)
[2017-05-22 06:46] LABS: ANION GAP 13.7 mmol/L (8-16); POTASSIUM - SERUM 3.4 mmol/L (3.5-5.1)
[2017-05-23] VITALS (8 sets, daily range): BP systolic 109–155; BP diastolic 45–64
[2017-05-23 06:45] LABS: HEMATOCRIT 35.7 % (42.0-54.0); HEMOGLOBIN 11.9 g/dL (13.5-17.5); MCH 27.4 pg (26.0-34.0); MCHC 33.3 g/dL (31.0-37.0); MCV 82.3 fL (80.0-100.0); MEAN PLATELET VOLUME 9.1 fL (7.4-10.4); RBC 4.34 10x6/uL (4.20-6.10); RDW 12.6 % (11.5-14.5); WBC 9.1 10x3/uL (4.8-10.8)
[2017-05-23 07:05] LABS: ANION GAP 11.9 mmol/L (8-16); BILIRUBIN - TOTAL 0.6 mg/dL (0.2-1.3); CALCIUM 8.2 mg/dL (8.5-10.1); CARBON DIOXIDE 29.3 mmol/L (21.0-32.0); CREATININE - SERUM 1.1 mg/dL (0.6-1.3); POTASSIUM - SERUM 3.2 mmol/L (3.5-5.1); PROTEIN - SERUM 6.9 g/dL (6.4-8.2)
[2017-05-23] MEDS ORDERED: HYDROCODONE-APA1 TAB PO (08:10)
== END 2017-05-23 10:24 | disposition home or self-care (01) | DRG 804 ==
LOC: D.CVICU 05:04 → D.SDCHOLD 05:04 → D.CVICU 09:14
PROVIDERS: Internal Medicine Cardiovascular Disease
PROC: 07B70ZZ Excision of Thorax Lymphatic, Open Approach (ICD-10-PCS; 2017-05-20)
PROC: 07TM0ZZ Resection of Thymus, Open Approach (ICD-10-PCS; principal; 2017-05-20 07:30)
DX: D15.0 Benign neoplasm of thymus (principal); E78.5 Hyperlipidemia, unspecified; I10 Essential (primary) hypertension; I65.22 Occlusion and stenosis of left carotid artery; E87.6 Hypokalemia

== ENCOUNTER 2017-05-26 15:08 | Emergency (ER) | payer MEDICARE ==
[2017-05-21 09:46] VITALS: BMI 27.4
[~2017-05-26 15:08] MED LIST changes: +HYDROCODONE-APA1 TAB PO
== END 2017-05-26 17:40 | disposition home or self-care (01) ==
LOC: D.ER 15:08
DX: T40.4X5A Adverse effect of other synthetic narcotics, initial encounter (principal); Y92.019 Unspecified place in single-family (private) house as the place of occurrence of the external cause

== ENCOUNTER 2017-07-28 15:41 | Emergency (ER) | payer MEDICARE ==
[2017-05-21 09:46] VITALS: BMI 27.4
[2017-07-28 16:13] LABS: BASOPHILS 0.3 % (0-2); EOSINOPHILS 4.3 % (0-7); HEMATOCRIT 40.4 % (42.0-54.0); HEMOGLOBIN 13.1 g/dL (13.5-17.5); IMMATURE GRANULOCYTES 0.2 % (0-5); LYMPHOCYTES 26.2 % (15-50); MCH 25.6 pg (26.0-34.0); MCHC 32.4 g/dL (31.0-37.0); MCV 78.9 fL (80.0-100.0); MEAN PLATELET VOLUME 9.3 fL (7.4-10.4); MONOCYTES 7.6 % (2-11); NEUTROPHILS 61.4 % (40-80); PLATELET COUNT 216 10x3/uL (130-400); RBC 5.12 10x6/uL (4.20-6.10)
[2017-07-28 16:25] LABS: ALBUMIN 3.5 g/dL (3.4-5.0); ANION GAP 13.3 mmol/L (8-16); BILIRUBIN - TOTAL 0.5 mg/dL (0.2-1.3); CALCIUM 8.4 mg/dL (8.5-10.1); CARBON DIOXIDE 29.3 mmol/L (21.0-32.0); CREATININE - SERUM 1.1 mg/dL (0.6-1.3); POTASSIUM - SERUM 3.6 mmol/L (3.5-5.1); PROTEIN - SERUM 7.7 g/dL (6.4-8.2)
[2017-07-28 16:40] LABS: APPEARANCE CLEAR (CLEAR); BILIRUBIN NEGATIVE (NEGATIVE); COLOR STRAW (YELLOW); GLUCOSE NEGATIVE (NEGATIVE); KETONE NEGATIVE (NEGATIVE); NITRITE NEGATIVE (NEGATIVE); PROTEIN NEGATIVE (NEGATIVE); SPECIFIC GRAVITY 1.005 (1.005-1.020); UROBILINOGEN NORMAL (NORMAL)
[2017-07-28 16:44] LABS: BACTERIA NONE SEEN /hpf (NONE SEEN); EPITHELIAL CELLS NSEEN /hpf (0-5); RED CELLS - URINE 0-5 /hpf (0-5); WHITE CELLS - URINE RARE /hpf (0-5)
== END 2017-07-28 18:55 | disposition home or self-care (01) ==
LOC: D.ER 15:41
PROVIDERS: Physician Assistant Medical
DX: I10 Essential (primary) hypertension (principal)

== ENCOUNTER 2017-10-19 06:09 | Emergency (ER) | payer MEDICARE ==
[~2017-10-19] VITALS: Ht 180.3 cm; Wt 88.6 kg
[2017-10-19 06:14] VITALS: Ht 180.3 cm; Wt 88.6 kg
[2017-10-19 06:49] LABS: BASOPHILS 0.6 % (0-2); EOSINOPHILS 3.5 % (0-7); HEMATOCRIT 39.3 % (42.0-54.0); HEMOGLOBIN 12.4 g/dL (13.5-17.5); IMMATURE GRANULOCYTES 0.1 % (0-5); MCH 23.4 pg (26.0-34.0); MCHC 31.6 g/dL (31.0-37.0); MCV 74.2 fL (80.0-100.0); MEAN PLATELET VOLUME 9.1 fL (7.4-10.4); MONOCYTES 7.5 % (2-11); NEUTROPHILS 67.3 % (40-80); PLATELET COUNT 193 10x3/uL (130-400); WBC 6.9 10x3/uL (4.8-10.8)
[2017-10-19 07:09] LABS: APTT 35.3 SECONDS (22.8-39.4); INR 1.07 (0.85-1.17); PROTIME 13.5 SECONDS (11.6-15.0)
[2017-10-19] MEDS ORDERED: COMPAZINE5 MG PO (07:18)
[2017-10-19 07:22] LABS: ALBUMIN 3.4 g/dL (3.4-5.0); ALKALINE PHOSPHATASE 78 U/L (46-116); ALT (SGPT) 17 U/L (10-68); BILIRUBIN - TOTAL 0.61 mg/dL (0.2-1.3); CALC OSMOLALITY 281 mosm/kg (275-300); CARBON DIOXIDE 29.5 mmol/L (21.0-32.0); CHLORIDE - SERUM 105 mmol/L (98-107); CREATINE KINASE 70 UL (21-232); CREATININE - SERUM 0.9 mg/dL (0.6-1.3); GLUCOSE 81 mg/dL (74-106); POTASSIUM - SERUM 3.7 mmol/L (3.5-5.1); PROTEIN - SERUM 7.1 g/dL (6.4-8.2); SODIUM 142 mmol/L (136-145); TROPONIN-I < 0.017 ng/mL (0.000-0.060); UREA NITROGEN 12 mg/dL (7-18); eGFR NON AFRICAN AMERICAN 86 mL/min (90-120)
[2017-10-19 08:21] VITALS: BP 145/69
== END 2017-10-19 08:32 | disposition home or self-care (01) ==
LOC: D.ER 06:09
PROVIDERS: Family Medicine
DX: R11.0 Nausea (principal); I10 Essential (primary) hypertension; K21.9 Gastro-esophageal reflux disease without esophagitis; R00.1 Bradycardia, unspecified

== ENCOUNTER → 2018-01-06 15:29 | Outpatient (CLI) | payer MEDICARE ==
[2017-10-19 06:14] VITALS: BMI 27.2
[~2018-01-06 15:29] MED LIST changes: +COMPAZINE5 MG PO
== END | disposition home or self-care (01) ==
LOC: D.CT 15:29
DX: D15.0 Benign neoplasm of thymus (principal)

== ENCOUNTER → 2018-04-07 12:11 | Outpatient (CLI) | payer MEDICARE ==
[2017-10-19 06:14] VITALS: BMI 27.2
== END | disposition home or self-care (01) ==
LOC: D.US 12:11
DX: I65.23 Occlusion and stenosis of bilateral carotid arteries (principal)

== ENCOUNTER 2019-07-12 09:12 | Emergency (ER) | payer OTHER ==
[~2019-07-12] VITALS: Ht 180.3 cm; Wt 90.0 kg
[2019-07-12 09:18] VITALS: Ht 180.3 cm; Wt 90.0 kg
[2019-07-12] MEDS ORDERED: NORVASC5 MG PO (09:22)
[2019-07-12] MEDS ORDERED: FERROUS SULFAT325 MG PO (09:22)
[2019-07-12] MEDS ORDERED: TRIAMTERENE-HC1 EAC3 PO (09:23)
[2019-07-12 09:55] LABS: BASOPHILS 0.5 % (0-2); EOSINOPHILS 3.4 % (0-7); HEMATOCRIT 54.1 % (42.0-54.0); HEMOGLOBIN 17.5 g/dL (13.5-17.5); IMMATURE GRANULOCYTES 0.4 % (0-5); LYMPHOCYTES 20.3 % (15-50); MCH 26.2 pg (26.0-34.0); MCHC 32.3 g/dL (31.0-37.0); MCV 81.1 fL (80.0-100.0); MEAN PLATELET VOLUME 9.1 fL (7.4-10.4); MONOCYTES 10.9 % (2-11); NEUTROPHILS 64.5 % (40-80); PLATELET COUNT 215 10x3/uL (130-400); RDW 16.2 % (11.5-14.5); WBC 7.8 10x3/uL (4.8-10.8)
[2019-07-12 09:59] LABS: RBC 6.67 10x6/uL (4.20-6.10)
[2019-07-12 10:00] LABS: ANION GAP 10.2 mmol/L (8-16); CALCIUM 8.8 mg/dL (8.5-10.1); CARBON DIOXIDE 32.3 mmol/L (21.0-32.0); CREATININE - SERUM 1.3 mg/dL (0.6-1.3); POTASSIUM - SERUM 3.5 mmol/L (3.5-5.1)
[2019-07-12 10:01] LABS: APTT 34.8 SECONDS (22.8-39.4); INR 0.96 (0.85-1.17); PROTIME 12.7 SECONDS (11.6-15.0)
[2019-07-12 10:06] LABS: ALBUMIN 3.7 g/dL (3.4-5.0); BILIRUBIN - TOTAL 0.59 mg/dL (0.2-1.3); PROTEIN - SERUM 7.8 g/dL (6.4-8.2)
[2019-07-12] MEDS ORDERED: ANUSOL-HC25 MG RC (11:04)
[2019-07-12 11:10] VITALS: BP 146/74
== END 2019-07-12 11:17 | disposition home or self-care (01) ==
LOC: D.ER 09:12
PROVIDERS: Emergency Medicine
DX: K64.8 Other hemorrhoids (principal); K92.1 Melena; I10 Essential (primary) hypertension

== ENCOUNTER 2019-11-23 15:43 | Emergency (ER) | payer OTHER ==
[~2019-11-23] VITALS: Ht 180.3 cm; Wt 88.6 kg
[~2019-11-23 15:43] MED LIST changes: +ANUSOL-HC25 MG RC; -COZAAR100 MG PO; +COZAAR50 MG PO; +FERROUS SULFAT325 MG PO; +NORVASC5 MG PO; +PRAVACHOL40 MG PO; -PRAVACHOL80 MG PO; +TRIAMTERENE-HC1 EAC3 PO
[2019-11-23 15:46] VITALS: Ht 180.3 cm; Wt 88.6 kg
[2019-11-23 17:23] LABS: BASOPHILS 0.5 % (0-2); HEMATOCRIT 46.8 % (42.0-54.0); HEMOGLOBIN 15.6 g/dL (13.5-17.5); IMMATURE GRANULOCYTES 0.1 % (0-5); LYMPHOCYTES 22.4 % (15-50); MCH 27.7 pg (26.0-34.0); MCHC 33.3 g/dL (31.0-37.0); MCV 83.1 fL (80.0-100.0); MEAN PLATELET VOLUME 9.3 fL (7.4-10.4); PLATELET COUNT 179 10x3/uL (130-400); RBC 5.63 10x6/uL (4.20-6.10); RDW 12.3 % (11.5-14.5); WBC 7.6 10x3/uL (4.8-10.8)
[2019-11-23 17:33] LABS: CALC OSMOLALITY 274 mosm/kg (275-300); CALCIUM 8.4 mg/dL (8.5-10.1); CARBON DIOXIDE 29.9 mmol/L (21.0-32.0); CHLORIDE - SERUM 103 mmol/L (98-107); CREATININE - SERUM 1.1 mg/dL (0.6-1.3); GLUCOSE 107 mg/dL (74-106); POTASSIUM - SERUM 3.9 mmol/L (3.5-5.1); SODIUM 137 mmol/L (136-145); UREA NITROGEN 16 mg/dL (7-18); eGFR NON AFRICAN AMERICAN 68 mL/min (90-120)
[2019-11-23 17:39] LABS: PROTIME 13.2 SECONDS (11.6-15.0)
[2019-11-23 17:40] LABS: APTT 37.1 SECONDS (22.8-39.4)
[2019-11-23 17:50] LABS: ALBUMIN 3.5 g/dL (3.4-5.0); ALKALINE PHOSPHATASE 69 U/L (30-120); ALT (SGPT) 20 U/L (10-68); BILIRUBIN - TOTAL 0.42 mg/dL (0.2-1.3); CKMB 1.1 U/L (0.0-3.6); CREATINE KINASE 87 UL (21-232); MAGNESIUM - SERUM 2.2 mg/dL (1.8-2.4); PROTEIN - SERUM 7.3 g/dL (6.4-8.2); TROPONIN-I < 0.017 ng/mL (0.000-0.060)
[2019-11-23 18:13] VITALS: BP 129/50
== END 2019-11-23 18:14 | disposition home or self-care (01) ==
LOC: D.ER 15:43
PROVIDERS: Family Medicine
DX: I10 Essential (primary) hypertension (principal); K21.9 Gastro-esophageal reflux disease without esophagitis

== ENCOUNTER 2019-12-23 08:15 | Day surgery (SDC) | payer OTHER ==
[~2019-12-23] VITALS: Ht 180.3 cm; Wt 85.7 kg
--- NOTE | ~2019-12-23 | OP ---
PATIENT NAME: BRENDAN FORD MEDICAL RECORD: [id number] :37 LOCATION:[facility] ADMISSION DATE: SURGEON: RAE BAILEY MD DATE OF OPERATION: 12/23/2019 PREOPERATIVE DIAGNOSIS: Biliary dyskinesia. POSTOPERATIVE DIAGNOSES: 1. Biliary dyskinesia. 2. Hepatomegaly. PROCEDURES: 1. Laparoscopic cholecystectomy. 2. Intraoperative cholangiography without immediate surgeon interpretation. 3. A 14-gauge core needle liver biopsies. SURGEON: Rae Bailey MD ROUTE RELIEF DRIVER: None. BLOOD LOSS: Minimal. ANESTHESIA: General. COMPLICATIONS: None. The risks, possible complications, and alternatives to the procedure were explained to the patient. He elects to proceed. OPERATIVE COURSE: The patient was conveyed to the operating room electively on 12/23/2019. General anesthesia was induced by the anesthesia staff. The abdomen was sterilely prepped and draped. A small skin karol was accomplished in the left upper quadrant. Veress needle was inserted through the skin karol into the peritoneal cavity. CO2 insufflation was begun. Once a sufficient pneumoperitoneum had been achieved, a 5-mm trocar was inserted in the left upper quadrant. Under direct internal vision utilizing a television camera, a 12-mm trocar was inserted through an incision at the umbilicus. A 5-mm trocar was inserted through the incision in the epigastrium and another 5-mm trocar was inserted through an incision far laterally in the right upper quadrant. During insertion of the Veress needle and all trocars, there appeared to have been no injury to the bowels, any intraperitoneal or retroperitoneal structures. An abdominal survey was undertaken. The indication for liver biopsy was hepatomegaly. Under laparoscopic guidance, I percutaneously accessed the right upper quadrant utilizing a 14-gauge core needle biopsy device. Cores were obtained over the convexity of the liver. The biopsy sites were made hemostatic with electrocautery. I then grasped the gallbladder. It was retracted caudad. I advanced a cholangiogram trocar. I punctured the fundus of the gallbladder. I aspirated bile. I then injected dye. Real time cholangiographic images were obtained. I thought there was some irregularity of the distal common bile duct. For this OPERATIVE REPORT [id number] BRENDAN FORD reason, I had the radiologist call me with this interpretation. He agreed that there was very mild irregularity of the common bile duct, but felt that it was probably not significant. I concur. I then withdrew the cholangiogram trocar. The gallbladder was then retracted cephalad. The infundibulum was retracted laterally. Blunt dissection was begun in the triangle of Calot. One cystic artery and one cystic duct were identified. These were clipped multiply and divided between clips. The gallbladder was then excised from its bed in the liver. It was placed in a bag retrieval device and was withdrawn through the umbilical fascia defect. The 12-mm trocar was replaced and the abdomen reinsufflated. I irrigated and aspirated in the right upper quadrant. There was no bleeding even at low pressure of 8. The Grant-Delano suture closure device and 0 Vicryl sutures were used to close the umbilical fascia. All the trocars were removed and the abdomen desufflated. The skin at the 5-mm trocar sites was closed with interrupted intracuticular 4-0 Vicryls. The skin at the umbilicus was closed with interrupted 4-0 Vicryl Rapide sutures. Sterile dressings were applied. The patient was then extubated and conveyed to post-anesthesia care unit where he was in stable condition. TRANSINT:[id number] Voice Confirmation ID: [id number] DOCUMENT ID: [id number] RAE BAILEY MD CC: [id number] DICTATION DATE: 01/07/201754 HEEL SLUGGER: 01/08/20 0021 [facility] 12/23/19 [facility] [address] [place] [address]
[2019-12-23 08:03] LABS: BASOPHILS 0.5 % (0-2); EOSINOPHILS 3.7 % (0-7); HEMATOCRIT 49.8 % (42.0-54.0); HEMOGLOBIN 16.7 g/dL (13.5-17.5); IMMATURE GRANULOCYTES 0.1 % (0-5); LYMPHOCYTES 22.9 % (15-50); MCH 27.8 pg (26.0-34.0); MCHC 33.5 g/dL (31.0-37.0); MEAN PLATELET VOLUME 8.8 fL (7.4-10.4); MONOCYTES 7.3 % (2-11); NEUTROPHILS 65.5 % (40-80); PLATELET COUNT 206 10x3/uL (130-400); WBC 8.2 10x3/uL (4.8-10.8)
[2019-12-23 08:14] LABS: ANION GAP 8.6 mmol/L (8-16); CALCIUM 8.3 mg/dL (8.5-10.1); CARBON DIOXIDE 33.6 mmol/L (21.0-32.0); CREATININE - SERUM 1.4 mg/dL (0.6-1.3); POTASSIUM - SERUM 4.2 mmol/L (3.5-5.1)
[~2019-12-23 08:15] MED LIST changes: +CATAPRES0.1 MG PO; +COZAAR100 MG PO; -COZAAR50 MG PO; +LEXAPRO10 MG PO; +OMEPRAZOLE20 M1 PO
[2019-12-23 08:37] VITALS: BP 172/79; Ht 180.3 cm; Wt 85.7 kg
--- NOTE | 2019-12-23 16:39 | NUR ---
1610 UNABLE TO VOID AFTER MURIEL 2500 CC IN. BLADDER CANNED AT 447CC. SPOKE WITH DR. BAILEY VIA PHONE. STRAIGHT CATH'D WITH 15 FR FOR 650CC CLEAR YELLOW URINE. PT TOLERATED WELL. IV D/C'D WITH CANNULA INTACT, PRESSURE HELD, DRSG PLACED. DISCHARGE INSTRUCTIONS GIVEN. PT AND VERBALIZED AN UNDERSTANDING.
== END 2019-12-23 16:42 | disposition home or self-care (01) ==
LOC: D.OPS 08:15
PROVIDERS: Anesthesiology; ATTEND Surgery
DX: K82.8 Other specified diseases of gallbladder (principal); R16.0 Hepatomegaly, not elsewhere classified; R11.0 Nausea; I10 Essential (primary) hypertension; E78.5 Hyperlipidemia, unspecified; K82.9 Disease of gallbladder, unspecified; D64.9 Anemia, unspecified

== ENCOUNTER 2019-12-26 06:55 | Inpatient (IN) | payer OTHER ==
[~2019-12-26] VITALS: Ht 180.3 cm; Wt 88.5 kg
[2019-12-26 07:24] LABS: BASOPHILS 0.1 % (0-2); EOSINOPHILS 1.5 % (0-7); HEMATOCRIT 48.1 % (42.0-54.0); HEMOGLOBIN 16.1 g/dL (13.5-17.5); IMMATURE GRANULOCYTES 0.2 % (0-5); LYMPHOCYTES 4.4 % (15-50); MCH 27.8 pg (26.0-34.0); MCHC 33.5 g/dL (31.0-37.0); MCV 83.1 fL (80.0-100.0); MEAN PLATELET VOLUME 9.3 fL (7.4-10.4); MONOCYTES 10.1 % (2-11); NEUTROPHILS 83.7 % (40-80); PLATELET COUNT 198 10x3/uL (130-400); RBC 5.79 10x6/uL (4.20-6.10); RDW 12.4 % (11.5-14.5); WBC 19.7 10x3/uL (4.8-10.8)
[2019-12-26 07:34] LABS: BILIRUBIN NEGATIVE (NEGATIVE); KETONE NEGATIVE (NEGATIVE); NITRITE NEGATIVE (NEGATIVE); UROBILINOGEN NORMAL (NORMAL); WHITE CELLS - URINE 0-5 /hpf (0-5)
[2019-12-26 07:35] LABS: BACTERIA FEW /hpf (NONE SEEN)
[2019-12-26 07:38] LABS: CALC OSMOLALITY 276 mosm/kg (275-300); CALCIUM 8.2 mg/dL (8.5-10.1); CARBON DIOXIDE 26.8 mmol/L (21.0-32.0); CHLORIDE - SERUM 98 mmol/L (98-107); CREATININE - SERUM 1.6 mg/dL (0.6-1.3); GLUCOSE 113 mg/dL (74-106); SODIUM 135 mmol/L (136-145); UREA NITROGEN 28 mg/dL (7-18); eGFR NON AFRICAN AMERICAN 44 mL/min (90-120)
[2019-12-26 07:42] LABS: ALBUMIN 3.7 g/dL (3.4-5.0); ALKALINE PHOSPHATASE 74 U/L (30-120); ALT (SGPT) 58 U/L (10-68); AMYLASE - SERUM 50 U/L (25-115); BILIRUBIN - TOTAL 1.22 mg/dL (0.2-1.3); LIPASE 55 U/L (73-393); PROTEIN - SERUM 7.6 g/dL (6.4-8.2)
[2019-12-26 07:52] LABS: TROPONIN-I < 0.017 ng/mL (0.000-0.060)
--- NOTE | 2019-12-26 09:00 | NUR ---
pt bladder scan shows no urine rentention.
--- NOTE | 2019-12-26 11:06 | NUR ---
pt layingin bed no distrss noted color wnl for race respirations are even and unlabored. will continue to monitor.
[2019-12-26 12:56] VITALS: BP 155/67
--- NOTE | 2019-12-26 13:00 | NUR ---
pt alert and oriented. laying in bed. no distress noted. color wnl for race.respirations are even and unlabored. will continue to monitor patient. at bedside
--- NOTE | 2019-12-26 15:17 | NUR ---
report called to ana at this time
[2019-12-26 15:47] VITALS: BP 152/66; BMI 27.2
--- NOTE | 2019-12-26 15:53 | NUR ---
TO ROOM 2227 FROM ER VIA WHEELCHAIR. PATIENT DENIES PAIN AT PRESENT.DENIES NEEDS.ORIENTATION TO ROOM. CALL LIGHT IN REACH
--- NOTE | 2019-12-26 18:40 | NUR ---
TOLERATED CLD WITHOUT NAUSEA. PAIN MEDS PER MAR. REPORTS WATERY BROWN STOOL. CONT PLAN OF CARE
[2019-12-26 20:00] VITALS: BP 120/52
--- NOTE | 2019-12-26 20:40 | NUR ---
LYING IN BED. ALERT AND ORIENTED X4. RESP EVEN AND NONLABORED. ABD DISTENDED AND FIRM. BS ARE HYPOACTIVE. REPORTS SMALL LIQUID BM TODAY. LAP SITES X4 NOTED TO ABD. UMBILICAL LAP SITE HAS SUTURES. LT ABD LAP SITE HAS STERISTRIPS. DENIES PAIN AT THIS TIME. NS @ 75 MLHR INFUSING IN RT FOREARM. AMBULATORY WITH SLIGHTLY UNSTEADY GAIT. SR ELEVATED X2. CL IN REACH.
[2019-12-27] VITALS: BP 129/57
--- NOTE | 2019-12-27 00:53 | NUR ---
PT C/O CONTINUED ABD PAIN AND STATES MORPHINE ISNT STRONG ENOUGH. PAGED GUEST ATTENDANT FOR DR STARKS AND WAITING FOR CALL BACK.
--- NOTE | 2019-12-27 01:19 | NUR ---
NO ONE HAS ANSWERED THE PAGE. DR STARKS PAGED AGAIN PER ANSWERING SERVICE FOR PT C/O ABD PAIN NOT RELIEVED BY MORPHINE
--- NOTE | 2019-12-27 01:25 | NUR ---
RECEIVED CALL FROM DR STARKS. NEW ORDER NOTED TO D/C MORPHINE AND START DILAUDID 0.5 MG IV Q4H PRN.
--- NOTE | 2019-12-27 02:21 | NUR ---
RESTING IN BED WITH EYES CLOSED. RESP NONLABORED. CL IN REACH. NO DISTRESS.
[2019-12-27 04:00] VITALS: BP 123/60
[2019-12-27 06:33] LABS: BASOPHILS 0.1 % (0-2); EOSINOPHILS 1.3 % (0-7); HEMOGLOBIN 14.1 g/dL (13.5-17.5); IMMATURE GRANULOCYTES 0.2 % (0-5); LYMPHOCYTES 3.1 % (15-50); MCH 27.4 pg (26.0-34.0); MEAN PLATELET VOLUME 9.8 fL (7.4-10.4); MONOCYTES 8.5 % (2-11); NEUTROPHILS 86.8 % (40-80); PLATELET COUNT 197 10x3/uL (130-400); RBC 5.14 10x6/uL (4.20-6.10); RDW 12.7 % (11.5-14.5); WBC 16.6 10x3/uL (4.8-10.8)
[2019-12-27 06:36] LABS: MCV 85.6 fL (80.0-100.0)
[2019-12-27 06:51] LABS: ALBUMIN 2.9 g/dL (3.4-5.0); ANION GAP 15.7 mmol/L (8-16); BILIRUBIN - TOTAL 0.72 mg/dL (0.2-1.3); CALCIUM 7.6 mg/dL (8.5-10.1); CARBON DIOXIDE 23.2 mmol/L (21.0-32.0); CREATININE - SERUM 1.6 mg/dL (0.6-1.3); POTASSIUM - SERUM 3.9 mmol/L (3.5-5.1); PROTEIN - SERUM 6.7 g/dL (6.4-8.2)
[2019-12-27 09:17] VITALS: BP 147/72
--- NOTE | 2019-12-27 10:00 | NUR ---
ASSESSMENT PER FLOW SHEET. PATIENT IS WITHOUT DISTRESS.CALL LIGHT IN REACH.
--- NOTE | 2019-12-27 11:00 | NUR ---
AMBULATED IN WHITE TWO LAPS.
[2019-12-27 13:08] VITALS: BP 118/52
--- NOTE | 2019-12-27 14:32 | NUR ---
16 GREEK ORTEGA INSERTED USING MANAGING DIRECTOR. 1400CC OF URINE RETURN IN BAG AFTER UNCLAMPING ORTEGA THREE TIMES TO PREVENT BLADDER SPASMS.
[2019-12-27 17:29] VITALS: BP 133/53
[2019-12-27 20:00] VITALS: BP 137/75
--- NOTE | 2019-12-27 22:30 | NUR ---
PT UP TO BATHROOM, REPORTS PASSING MUCOUS INSTEAD OF STOOL. URINE IN CATHETER IS STILL BLOOD TINGED. SPOKE WITH DR. STARKS ABOUT HOME MED REC. CHANGED PRAVASTATIN FROM 40 MG TO 80 MG QHS, LOSARTAN 100 MG TO DAILY AND ADDED PROTONIX FOR ACID REFLUX. NO OTHER NEEDS. WILL REASSESS AND CONTINUE TO MONITOR.
[2019-12-28] VITALS: BP 118/51
[2019-12-28 04:00] VITALS: BP 131/61
[2019-12-28 06:26] LABS: BASOPHILS 0.2 % (0-2); EOSINOPHILS 4.6 % (0-7); HEMOGLOBIN 11.9 g/dL (13.5-17.5); IMMATURE GRANULOCYTES 0.4 % (0-5); LYMPHOCYTES 12.9 % (15-50); MCH 27.7 pg (26.0-34.0); MCHC 32.2 g/dL (31.0-37.0); MEAN PLATELET VOLUME 9.4 fL (7.4-10.4); MONOCYTES 6.4 % (2-11); NEUTROPHILS 75.5 % (40-80); PLATELET COUNT 172 10x3/uL (130-400); RDW 12.8 % (11.5-14.5)
[2019-12-28 06:28] LABS: WBC 12.1 10x3/uL (4.8-10.8)
[2019-12-28 06:52] LABS: ANION GAP 10.8 mmol/L (8-16); CARBON DIOXIDE 28.8 mmol/L (21.0-32.0); CREATININE - SERUM 1.2 mg/dL (0.6-1.3); POTASSIUM - SERUM 3.6 mmol/L (3.5-5.1)
[2019-12-28 06:57] LABS: CALCIUM 6.8 mg/dL (8.5-10.1)
[2019-12-28 09:27] VITALS: BP 115/48
[2019-12-28 10:06] VITALS: Ht 180.3 cm; Wt 88.5 kg
--- NOTE | 2019-12-28 11:40 | NUR ---
STARTED IV IN LEFT ARM X 1 STICK. RIGHT ARM IV RED AND STARTING TO HURT. REMOVED WITH CATH TIP INTACT. FAMILY AT BEDSIDE. CALL LIGHT WITHIN REACH.
--- NOTE | 2019-12-28 11:50 | NUR ---
SPOKE WITH DR. SANDERS ABOUT PATIENTS PAIN FROM CATHETER. NEW ORDERS RECIEVED AND CARRIED OUT.
[2019-12-28 13:45] VITALS: BP 124/55
--- NOTE | 2019-12-28 18:34 | NUR ---
PATIENT FEELING BETTER AT THIS TIME. ORTEGA INTACT. HAVING BM'S. NO BLADDER SPASMS OR PAIN AT THIS TIME. IV INTACT. CALL LIGHT WITHIN REACH.
[2019-12-28 20:28] VITALS: BP 129/58
[2019-12-29 00:24] VITALS: BP 128/61
[2019-12-29 04:51] VITALS: BP 152/62
--- NOTE | 2019-12-29 05:05 | NUR ---
2000) WALKING ROUNDS CHGE OF SHIFT CAME TO DOOR YELLING AT NURSES DURING REPORT ARE YOU GONNA ANSWER THIS GOT DAMN LIGHT I KNOW YOU SEE IT ON. WHEN ASKED PHIL CAN I HELP YOU REQUESTING APPLE JUICE. WILL CONTINUE TO MONITOR FOR ANY CHGES AND FOLLOW CURRENT PLAN OF CARE
--- NOTE | 2019-12-29 07:39 | NUR ---
ALERT AND ORIENTED. LUNGS CLEAR BILATERALLY. HEART SOUNDS S1 AND S2 HEARD IN ALL [place]. BOWEL SOUNDS ACTIVE X 4. IV TO LFA PATENT WITHOUT REDNESS. DENIES NEEDS. BED LOW. CALL [place] AND PERSONAL ITEMS IN REACH. WILL CONTINUE TO MONITOR.
--- NOTE | 2019-12-29 10:43 | NUR ---
PATIENT STATES ALLERGIC TO NORCO BUT CAN'T REMEMBER WHAT ALLERGIC REACTION IS. DR STARKS MADE AWARE AND NEW ORDERS PLACED PER MD.
--- NOTE | 2019-12-29 11:53 | NUR ---
RESTING IN BED. DENIES NEEDS. WILL CONTINUE TO MONITOR.
[2019-12-29 13:12] VITALS: BP 140/62
[2019-12-29 16:24] VITALS: BP 154/98
--- NOTE | 2019-12-29 19:10 | NUR ---
INITIAL ROUND MADE PT CO WANTING TO SLEEP AND BLADDER SPASM I WILL ATTEMPT TO SATISFY THESE NEEDS BED LOW AND LOCKED AND CALL LIGHT IS IN REACH
[2019-12-29 20:00] VITALS: BP 154/70
--- NOTE | 2019-12-29 22:39 | NUR ---
ATTEMPTED TO SEE TO ALL NEEDS PT IS A BIT DEMANDING
--- NOTE | 2019-12-30 02:08 | NUR ---
PT CONTINUES TO CALL ME INTO ROOM OFTEN DEMANDING THAT I KNOCK HIM OUT SO HE CAN SLEEP STATING YOU MUST GIVE ME MORE MEDS HE STATES THAT THE BLADDER SPAMS HAVE STOPPED BUT NOW HIS "TESTICALS ARE TOO COLD" I PROVIDED A WARM BLANKET UNDER HIS TOP BLANKET
[2019-12-30 04:00] VITALS: BP 160/75
--- NOTE | 2019-12-30 06:04 | NUR ---
I have reviewed this patient and I concur with the Shift Assessment completed by the Licensed Practical Nurse today this shift.
[2019-12-30] MEDS ORDERED: FLOMAX0.4 MG PO (07:51)
[2019-12-30] MEDS ORDERED: URISPAS100 MG PO (07:52)
[2019-12-30] MEDS ORDERED: PROSCAR5 MG PO (07:52)
--- NOTE | 2019-12-30 09:07 | MORECARE ---
CASE MANAGEMENT DISCHARGE SUMMARY PATIENT: BRENDAN FORD UNIT: [id number] ADM DATE: 12/26/19 AGE: 84 : 36 SEX: M ROOM/BED: D.2227 AUTHOR: TINY,DOC PHYSICIAN: REFERRING PHYSICIAN: ROMI STARKS MD DATE OF SERVICE: 12/30/19 Discharge Plan Patient Name: BRENDAN FORD Facility: [facility]:[place] : 1935 Planned Disposition: Home Health Service Anticipated Discharge Date: Discharge Date: Expected LOS: Initial Reviewer: [email or web address] Initial Review Date: 12/30/2019 Generated: 12/30/19 10:06 am Comments DCP- Discharge Planning Updated by [email or web address]: Cara Pillai on 12/30/19 8:[address] Patient Name: BRENDAN FORD Admission Status: ER Accout number: [id number] Admission Date: 12-26-2019 : 1935 Admission Diagnosis: Attending: ROMI STARKS Current LOS: 4 Anticipated DC Date: Planned Disposition: Home Health Service [facility] Discharge Planning Comments: CM met with patient at bedside after explaining CM role and obtaining verbal consent. CM discussed availability / needs of home health, REHAB and medical equipment. PATIENT WILL NEED HH FOR NURSING AND ORTEGA CARE, [place] SIGNED FOR [facility]. I HAVE FAXED REFERRAL TO THEM AND WAITING CALL BACK. IMM SIGNED. WILL HAVE FAMILY PICK HIM UP AT TIME OF DC. Direct Support Professional Caregiver: Cara Pillai DCPIA - Discharge Planning Initial Assessment Updated by [id number]: Cara Pillai on 12/30/19 9:03 am * Is the patient Alert and Oriented? Yes * Preadmission Environment Home with Family * ADLs Independent * Equipment None * Community resources currently utilized None * Additional services required to return to the preadmission environment? Yes * Can the patient safely return to the preadmission environment? Yes * Has this patient been hospitalized within the prior 30 days at any hospital? No External Providers [facility] Next Contact Date: Service Request Date: Service Type: Resolution: Reviewer: Comments: Coverage Notice Reviewer: [email or web address] - Cara Pillai Notice Issued Date-Time: 12/30/2019 8:55 Notice Type: IM Discharge Notice Notice Delivered To: Relationship to Patient: Oil Burner Name: Delivery Method: - Carlita Days: Prior Verbal Notification: Recipient Understood Notice: Recipient Signature: Med Rec Note Co-signed by Attending: Coverage Notice Comment: Reviewer: [email or web address] Zohreh Pillai Notice Issued Date-Time: 12/30/2019 8:55 Notice Type: Patient Choice Letter Notice Delivered To: Patient Relationship to Patient: Oil Burner Name: Delivery Method: - Carlita Days: Prior Verbal Notification: Recipient Understood Notice: Yes Recipient Signature: Yes Med Rec Note Co-signed by Attending: Coverage Notice Comment: NICK Patient Name: BRENDAN FORD Page 28311 at 0907 All edits/amendments must be made on the electronic document DICTATION DATE: 12/30/19905 [employer]CHO[employer] READING TEACHER: ANUSHA 12/30/19905 RPT#: [id number] DC DATE: STATUS: ADM IN [facility] [address] [place] [address] END OF REPORT
[2019-12-30 09:18] VITALS: BP 157/64
--- NOTE | 2019-12-30 10:16 | NUR ---
DISCHARGE TEACHING COMPLETE. NO FURTHER QUESTIONS. IV REMOVED, CATH TIP INTACT. BELONGINGS GATHERED. LEFT UNIT VIA WHEELCHAIR TO HOME.
--- NOTE | 2019-12-30 15:32 | MORECARE ---
CASE MANAGEMENT DISCHARGE SUMMARY PATIENT: BRENDAN FORD UNIT: [id number] ADM DATE: 12/26/19 AGE: 84 : 36 SEX: M ROOM/BED: D.2227 AUTHOR: TINY,DOC PHYSICIAN: REFERRING PHYSICIAN: ROMI STARKS MD DATE OF SERVICE: 12/30/19 Discharge Plan Patient Name: BRENDAN FORD Facility: [facility]:[place] : 1935 Planned Disposition: Home Health Service Anticipated Discharge Date: Discharge Date: 12/30/2019 Expected LOS: Initial Reviewer: [email or web address] Initial Review Date: 12/30/2019 Generated: 12/30/19 4:32 pm Comments DCP- Discharge Planning Updated by [email or web address]: Cara Pillai on 12/30/19 8:[address] Patient Name: BRENDAN FORD Admission Status: ER Accout number: [id number] Admission Date: 12-26-2019 : 1935 Admission Diagnosis: Attending: ROMI STARKS Current LOS: 4 Anticipated DC Date: Planned Disposition: Home Health Service Primary Insurance: [employer] Discharge Planning Comments: CM met with patient at bedside after explaining CM role and obtaining verbal consent. CM discussed availability / needs of home health, REHAB and medical equipment. PATIENT WILL NEED HH FOR NURSING AND ORTEGA CARE, [facility] SIGNED FOR [facility]. I HAVE FAXED REFERRAL TO THEM AND WAITING CALL BACK. IMM SIGNED. WILL HAVE FAMILY PICK HIM UP AT TIME OF DC. Movie Extra: Cara Pillai DCPIA - Discharge Planning Initial Assessment Updated by [id number]: Cara Pillai on 12/30/19 9:03 am * Is the patient Alert and Oriented? Yes * Preadmission Environment Home with Family * ADLs Independent * Equipment None * Community resources currently utilized None * Additional services required to return to the preadmission environment? Yes * Can the patient safely return to the preadmission environment? Yes * Has this patient been hospitalized within the prior 30 days at any hospital? No Coverage Notice Reviewer: [email or web address] Zohreh Pillai Notice Issued Date-Time: 12/30/2019 8:55 Notice Type: IM Discharge Notice Notice Delivered To: Relationship to Patient: Nurse Advocate Name: Delivery Method: - Carlita Days: Prior Verbal Notification: Recipient Understood Notice: Recipient Signature: Med Rec Note Co-signed by Attending: Coverage Notice Comment: Reviewer: [email or web address] Zohreh Pillai Notice Issued Date-Time: 12/30/2019 8:55 Notice Type: Patient Choice Letter Notice Delivered To: Patient Relationship to Patient: Nurse Advocate Name: Delivery Method: - Carlita Days: Prior Verbal Notification: Recipient Understood Notice: Yes Recipient Signature: Yes Med Rec Note Co-signed by Attending: Coverage Notice Comment: NICK Last DP export: 12/30/19 8:07 am Patient Name: BRENDAN FORD Page [phone] at 1532 All edits/amendments must be made on the electronic document DICTATION DATE: 12/30/19 1532 CASH REGISTER OPERATOR: ANUSHA 12/30/19 1532 RPT#: [id number] DC DATE:12/30/19 STATUS: DIS IN [facility] [address] [place] [address] END OF REPORT
== END 2019-12-30 10:31 | disposition home health service (06) | DRG 699 ==
LOC: D.ER 06:55 → D.MS 08:33 → OBSVTIME 08:33 → D.MS 16:07
PROVIDERS: Family Medicine; ADMIT Family Medicine; ATTEND Family Medicine
DX: N13.9 Obstructive and reflux uropathy, unspecified (principal); N17.9 Acute kidney failure, unspecified; D72.829 Elevated white blood cell count, unspecified; I10 Essential (primary) hypertension; K21.9 Gastro-esophageal reflux disease without esophagitis; R33.9 Retention of urine, unspecified; K59.00 Constipation, unspecified; N40.0 Benign prostatic hyperplasia without lower urinary tract symptoms; R10.9 Unspecified abdominal pain; G89.18 Other acute postprocedural pain; R14.0 Abdominal distension (gaseous)

== ENCOUNTER → 2020-01-04 19:42 | Outpatient (CLI) | payer OTHER ==
[2019-12-28 10:06] VITALS: BMI 27.2
[~2020-01-04 19:42] MED LIST changes: +FLOMAX0.4 MG PO; +PROSCAR5 MG PO; +URISPAS100 MG PO
[2020-01-04 21:57] LABS: BILIRUBIN NEGATIVE (NEGATIVE); KETONE NEGATIVE (NEGATIVE); NITRITE NEGATIVE (NEGATIVE); UROBILINOGEN NORMAL mg/dL (< 2)
[2020-01-04 21:58] LABS: BACTERIA FEW /HPF (NONE SEEN); WHITE CELLS - URINE OCC HPF (0-1)
== END | disposition home or self-care (01) ==
LOC: D.LABREF 19:42
PROVIDERS: ATTEND Urology
DX: N40.1 Benign prostatic hyperplasia with lower urinary tract symptoms (principal)